=== PATIENT | male | born 1930 | race African-American/Black ===

== ENCOUNTER 2017-12-07 21:29 | Emergency (ER) | payer OTHER ==
[~2017-12-07] VITALS: Ht 177.8 cm; Wt 69.0 kg
[2017-12-07] MEDS ORDERED: ACETAMINOPHEN 325MG TABLET PO STA (21:43)
[2017-12-07] MEDS ORDERED: SODIUM CHLORIDE 0.9% 1000ML BAG (SEPSIS BOLUS) IV ONE (21:45)
[2017-12-07 22:09] LABS: BASOPHILS % 0.2 % (0.0-2.0); EOSINOPHILS % 0.1 % (0.0-5.0); HEMATOCRIT. 37.5 % (42.0-52.0); HEMOGLOBIN. 12.7 g/dL (14.0-18.0); LYMPHOCYTES % 17.1 % (20.0-50.0); MEAN CORPUSCULAR HEMOGLOBIN 29.9 pg (28.0-32.0); MEAN CORPUSCULAR VOLUME 88.4 fL (80.0-94.0); MEAN PLATELET VOLUME 7.3 fl (7.4-10.4); MONOCYTES % 2.7 % (2.0-8.0); NEUTROPHILS % 79.9 % (40.0-76.0); PLATELET 167 x1000/uL (130-400); RED BLOOD CELL COUNT 4.24 mill/uL (4.7-6.1); RED CELL DISTRIBUTION WIDTH 13.9 % (11.6-14.6)
[2017-12-07 22:17] LABS: PROTHROMBIN TIME 10.8 sec (9.4-11.6)
[2017-12-07 22:19] LABS: CHLORIDE 100 mEq/L (98-107)
[2017-12-07 22:25] LABS: TROPONIN I < 0.02 ng/mL (0.00-0.04)
[2017-12-07 22:35] LABS: CLARITY URINE CLOUDY (CLEAR); COLOR URINE YELLOW (YELLOW); KETONES URINE NEGATIVE (NEGATIVE); LEUKOCYTE ESTERASE URINE 2+ (NEGATIVE); NITRITE URINE NEGATIVE (NEGATIVE); OCCULT BLOOD URINE 1+ (NEGATIVE); PH URINE 8.5 (4.5-8.0); PROTEIN URINE 1+ (NEGATIVE); SPECIFIC GRAVITY URINE 1.013 (1.005-1.030); UROBILINOGEN URINE 0.2 E.U./dL (0.2-1.0)
[2017-12-07] MEDS ORDERED: CEFTRIAXONE 1 G PREMIX 50 ML IV ONE (23:00)
[2017-12-07] MEDS ORDERED: POTASSIUM CHLORIDE 20MEQ TABLET SR PO ONE (23:45)
[2017-12-08 01:46] VITALS: BP 143/73
== END 2017-12-08 01:47 | disposition short-term general hospital (02) ==
LOC: ER 21:49 → CANBEDREQ 12-08 02:57
DX: N30.00 Acute cystitis without hematuria (principal); R65.20 Severe sepsis without septic shock; A41.9 Sepsis, unspecified organism; E87.6 Hypokalemia; E11.9 Type 2 diabetes mellitus without complications; I10 Essential (primary) hypertension; F03.90 Unspecified dementia, unspecified severity, without behavioral disturbance, psychotic disturbance, mood disturbance, and anxiety
CPT/HCPCS: 36415; 51702; 71045; 80053; 81003; 83605; 84484; 85025; 85610; 87040; 87077; 87086; 87186; 87804; 93005; 96361; 96365; 96366; 99291; J0696; J7030; A4315

== ENCOUNTER 2018-01-30 00:52 | Emergency (ER) | payer OTHER ==
[~2018-01-30] VITALS: Ht 175.3 cm; Wt 72.0 kg
[2018-01-30] MEDS ORDERED: SODIUM CHLORIDE 0.9% 1,000 ML IV ONE (01:02)
[2018-01-30 01:36] LABS: BASOPHILS % 0.2 % (0.0-2.0); EOSINOPHILS % 1.9 % (0.0-5.0); HEMOGLOBIN. 12.8 g/dL (14.0-18.0); LYMPHOCYTES % 62.4 % (20.0-50.0); MEAN CORPUSCULAR HEMOGLOBIN 30.6 pg (28.0-32.0); MEAN CORPUSCULAR VOLUME 88.3 fL (80.0-94.0); MEAN PLATELET VOLUME 7.2 fl (7.4-10.4); MONOCYTES % 5.1 % (2.0-8.0); NEUTROPHILS % 30.4 % (40.0-76.0); PLATELET 174 x1000/uL (130-400); RED BLOOD CELL COUNT 4.19 mill/uL (4.7-6.1); RED CELL DISTRIBUTION WIDTH 13.4 % (11.6-14.6)
[2018-01-30 01:38] LABS: CHLORIDE 105 mEq/L (98-107)
[2018-01-30 01:42] LABS: ETHANOL BLOOD < 10 mg/dL
[2018-01-30 01:43] LABS: CLARITY URINE CLEAR (CLEAR); COLOR URINE YELLOW (YELLOW); KETONES URINE NEGATIVE (NEGATIVE); LEUKOCYTE ESTERASE URINE NEGATIVE (NEGATIVE); NITRITE URINE NEGATIVE (NEGATIVE); OCCULT BLOOD URINE NEGATIVE (NEGATIVE); PROTEIN URINE NEGATIVE (NEGATIVE); UROBILINOGEN URINE 0.2 E.U./dL (0.2-1.0)
[2018-01-30 02:13] LABS: *AMPHETAMINES SCREEN URINE NEGATIVE (NEGATIVE); *BARBITURATES SCREEN URINE NEGATIVE (NEGATIVE); *BENZODIAZEPINES SCREEN URINE NEGATIVE (NEGATIVE); *COCAINE SCREEN URINE NEGATIVE (NEGATIVE); METHADONE URINE SCREEN NEGATIVE (NEGATIVE); PHENCYCLIDINE URINE SCREEN NEGATIVE (NEGATIVE)
[2018-01-30 02:14] LABS: CANNABINOID URINE SCREEN NEGATIVE (NEGATIVE)
[2018-01-30] MEDS ORDERED: HYDROCODONE/ACETAMINOPHEN 10/325MG TABLET PO ONE (02:15)
[2018-01-30 02:36] LABS: OPIATES URINE SCREEN NEGATIVE (NEGATIVE)
[2018-01-30] MEDS ORDERED: HYDRALAZINE 20MG/ML VIAL IV NR (02:45)
[2018-01-30] MEDS ORDERED: IBUPROFEN 400MG TABLET PO ONE (04:45)
[2018-01-30 05:25] VITALS: BP 162/84
== END 2018-01-30 05:20 | disposition home or self-care (01) ==
LOC: ER 00:52
DX: H70.92 Unspecified mastoiditis, left ear (principal); R41.0 Disorientation, unspecified; I10 Essential (primary) hypertension; E11.9 Type 2 diabetes mellitus without complications; F03.90 Unspecified dementia, unspecified severity, without behavioral disturbance, psychotic disturbance, mood disturbance, and anxiety; Z87.440 Personal history of urinary (tract) infections; Z90.49 Acquired absence of other specified parts of digestive tract; Z92.3 Personal history of irradiation
CPT/HCPCS: 36415; 70450; 71045; 74176; 80053; 80305; 81003; 82962; 83605; 83690; 83880; 84484; 85025; 87040; 87086; 93005; 96361; 96374; 99285; G0482; J0360; J7030

== ENCOUNTER 2018-05-21 23:00 | Inpatient (IN) | payer OTHER ==
[~2018-05-21] VITALS: Ht 177.8 cm; Wt 74.8 kg
[2018-05-21] MEDS ORDERED: SODIUM CHLORIDE 0.9% 1,000 ML IV ONE (23:45)
[2018-05-22 00:52] LABS: BASOPHILS % 0.4 % (0.0-2.0); EOSINOPHILS % 0.7 % (0.0-5.0); HEMATOCRIT. 35.5 % (42.0-52.0); HEMOGLOBIN. 12.2 g/dL (14.0-18.0); LYMPHOCYTES % 42.7 % (20.0-50.0); MEAN CORPUSCULAR HEMOGLOBIN 30.5 pg (28.0-32.0); MEAN CORPUSCULAR VOLUME 88.9 fL (80.0-94.0); MEAN PLATELET VOLUME 7.2 fl (7.4-10.4); NEUTROPHILS % 48.2 % (40.0-76.0); PLATELET 158 x1000/uL (130-400); RED BLOOD CELL COUNT 3.99 mill/uL (4.7-6.1); RED CELL DISTRIBUTION WIDTH 13.5 % (11.6-14.6)
[2018-05-22 00:59] LABS: CHLORIDE 106 mEq/L (98-107)
[2018-05-22 01:00] LABS: PARTIAL THROMBOPLASTIN TIME 21.7 sec (23.4-31.0); PROTHROMBIN TIME 10.1 sec (9.1-11.1)
[2018-05-22 01:43] LABS: CLARITY URINE CLEAR (CLEAR); COLOR URINE YELLOW (YELLOW); KETONES URINE NEGATIVE (NEGATIVE); LEUKOCYTE ESTERASE URINE NEGATIVE (NEGATIVE); NITRITE URINE NEGATIVE (NEGATIVE); OCCULT BLOOD URINE NEGATIVE (NEGATIVE); PROTEIN URINE NEGATIVE (NEGATIVE); UROBILINOGEN URINE 0.2 E.U./dL (0.2-1.0)
[2018-05-22 05:30] VITALS: BP 208/103
[2018-05-22] MEDS ORDERED: CARB-31 PO (06:26)
[2018-05-22] MEDS ORDERED: HYDR-4134 PO (06:26)
[2018-05-22] MEDS ORDERED: ATEN-42 PO (06:26)
[2018-05-22] MEDS ORDERED: LOSA100T14 PO (06:26)
[2018-05-22] MEDS ORDERED: CARB200T PO (06:26)
[2018-05-22] MEDS ORDERED: AMLO5TAB88 PO (06:26)
[2018-05-22] MEDS ORDERED: POTA-9 PO (06:26)
[2018-05-22] MEDS ORDERED: ASPI-1159 PO (06:26)
[2018-05-22] MEDS ORDERED: QUET100T PO (06:26)
[2018-05-22 08:00] VITALS: BP 188/110
[2018-05-22] MEDS ORDERED: ONDANSETRON HCL 4MG/2ML VIAL IV PRN (09:15)
[2018-05-22] MEDS ORDERED: MAGNESIUM/ALUMINUM HYDROXIDE/SIMETHICONE 30ML UDC PO PRN (09:15)
[2018-05-22] MEDS ORDERED: ACETAMINOPHEN 650MG/20.3ML UDC GT PRN (09:15)
[2018-05-22] MEDS ORDERED: HYDROCODONE/ACETAMINOPHEN 10/325MG TABLET PO PRN (09:15)
[2018-05-22] MEDS ORDERED: DOCUSATE SODIUM 100MG CAPSULE PO PRN (09:15)
[2018-05-22] MEDS ORDERED: GUAIFENESIN 200MG/10ML SUGAR FREE UDC PO PRN (09:15)
[2018-05-22] MEDS ORDERED: HYDROCODONE/ACETAMINOPHEN 5/325MG TABLET PO PRN (09:15)
[2018-05-22] MEDS ORDERED: ACETAMINOPHEN 650MG SUPP PR PRN (09:15)
[2018-05-22] MEDS ORDERED: ACETAMINOPHEN 325MG TABLET PO PRN (09:15)
[2018-05-22] MEDS: CARBAMAZEPINE 200MG TABLET PO SCH ×2 (09:53→17:39)
[2018-05-22] MEDS: LOSARTAN POTASSIUM 100 MG TABLET PO SCH (09:53)
[2018-05-22] MEDS: ASPIRIN 81MG TABLET PO SCH (09:53)
[2018-05-22] MEDS: ENOXAPARIN 40MG/0.4ML SYR SUBCUT SCH (11:36)
[2018-05-22 12:00] VITALS: BP_SYST 158; BP_SYST 166; BP_SYST 175; BP_DIAS 84; BP_DIAS 85; BP_DIAS 87
[2018-05-22] MEDS: IPRATROPIUM/ALBUTEROL 0.5-3(2.5)MG/3ML NEB INH SCH ×2 (12:14→20:41)
[2018-05-22] MEDS ORDERED: HYDRALAZINE HCL 25MG TABLET PO SCH (14:00)
[2018-05-22 14:08] LABS: CREATINE KINASE 87 IU/L (39-308); CREATINE KINASE MB FRACTION < 1.0 ng/mL (0.5-3.6)
[2018-05-22] MEDS: HYDRALAZINE HCL 25MG TABLET PO SCH ×2 (14:14→21:22)
[2018-05-22] MEDS: CARBIDOPA/LEVODOPA 10/100MG TABLET PO SCH ×2 (14:14→21:21)
[2018-05-22 16:00] VITALS: BP 155/90
[2018-05-22 20:00] VITALS: BP_SYST 135; BP_SYST 141; BP_DIAS 73; BP_DIAS 79
[2018-05-22 21:16] LABS: AMMONIA 25 uMol/L (<32)
[2018-05-22 23:52] LABS: CREATINE KINASE 102 IU/L (39-308)
[2018-05-23] VITALS: BP 130/76
[2018-05-23] MEDS: IPRATROPIUM/ALBUTEROL 0.5-3(2.5)MG/3ML NEB INH SCH ×3 (01:47→14:05)
[2018-05-23 04:00] VITALS: BP 146/78
[2018-05-23] MEDS: HYDRALAZINE HCL 25MG TABLET PO SCH ×2 (05:32→14:07)
[2018-05-23] MEDS: CARBIDOPA/LEVODOPA 10/100MG TABLET PO SCH ×2 (05:32→14:07)
[2018-05-23 07:39] LABS: CHLORIDE 106 mEq/L (98-107)
[2018-05-23 07:41] LABS: BASOPHILS % 0.2 % (0.0-2.0); EOSINOPHILS % 0.6 % (0.0-5.0); HEMATOCRIT. 37.9 % (42.0-52.0); HEMOGLOBIN. 12.9 g/dL (14.0-18.0); LYMPHOCYTES % 41.6 % (20.0-50.0); MEAN CORPUSCULAR VOLUME 87.9 fL (80.0-94.0); MEAN PLATELET VOLUME 7.5 fl (7.4-10.4); MONOCYTES % 5.6 % (2.0-8.0); PLATELET 202 x1000/uL (130-400); RED BLOOD CELL COUNT 4.31 mill/uL (4.7-6.1); RED CELL DISTRIBUTION WIDTH 13.7 % (11.6-14.6)
[2018-05-23 07:50] LABS: HDL CHOLESTEROL 52 mg/dL (40-59); LDL CHOLESTEROL 83 mg/dL (5-100)
[2018-05-23 07:51] LABS: PHOSPHORUS 2.2 mg/dL (2.5-4.9)
[2018-05-23 07:56] LABS: T4 FREE 0.89 ng/dL (0.76-1.46)
[2018-05-23 08:00] VITALS: BP_SYST 126; BP_SYST 138; BP_DIAS 78; BP_DIAS 82
[2018-05-23] MEDS: ASPIRIN 81MG TABLET PO SCH (09:08)
[2018-05-23] MEDS: CARBAMAZEPINE 200MG TABLET PO SCH ×2 (09:08→18:13)
[2018-05-23] MEDS: ENOXAPARIN 40MG/0.4ML SYR SUBCUT SCH (09:08)
[2018-05-23] MEDS: LOSARTAN POTASSIUM 100 MG TABLET PO SCH (09:08)
[2018-05-23] MEDS ORDERED: POTASSIUM CHLORIDE 20MEQ TABLET SR PO NR (10:30)
[2018-05-23 12:00] VITALS: BP 104/66
[2018-05-23] MEDS ORDERED: PNEUMOCOCCAL 23-VAL P-SAC VAC 0.5 ML IM ONE (12:00)
[2018-05-23] MEDS ORDERED: LORAZEPAM 2MG/ML CPJ IV PRN (13:45)
[2018-05-23 16:00] VITALS: BP 105/63
[2018-05-23 16:58] VITALS: BP 105/63
[2018-05-23] MEDS ORDERED: CARVEDILOL 3.125 MG TABLET PO SCH (21:00)
== END 2018-05-23 19:35 | disposition short-term general hospital (02) | DRG 309 ==
LOC: ER 23:46 → 7WST 05-22 01:24 → EDBEDREQ 05-22 01:26 → ENRESERV 05-22 03:47
PROVIDERS: ADMIT Internal Medicine; ATTEND Internal Medicine
DX: I44.0 Atrioventricular block, first degree (principal); E44.1 Mild protein-calorie malnutrition; E11.9 Type 2 diabetes mellitus without complications; G20 Parkinson's disease; I10 Essential (primary) hypertension; Z79.84 Long term (current) use of oral hypoglycemic drugs; I95.9 Hypotension, unspecified; G40.909 Epilepsy, unspecified, not intractable, without status epilepticus; F02.80 Dementia in other diseases classified elsewhere, unspecified severity, without behavioral disturbance, psychotic disturbance, mood disturbance, and anxiety; Z79.899 Other long term (current) drug therapy; Z79.82 Long term (current) use of aspirin; Z78.1 Physical restraint status; Z87.440 Personal history of urinary (tract) infections; Z68.23 Body mass index [BMI] 23.0-23.9, adult
CPT/HCPCS: 36415; 70450; 71045; 78580; 80053; 80061; 81003; 82140; 82550; 82553; 83036; 83735; 83880; 84100; 84439; 84443; 84481; 84484; 85025; 85379; 85610; 85730; 90732; 93005; 93306; 93880; 93970; 94640; 96361; 96374; 97161; 97162; 97165; 99285; J1650; J2060; J7030; J7620

== ENCOUNTER 2019-02-15 23:49 | Emergency (ER) | payer OTHER ==
[~2019-02-15] VITALS: Ht 182.9 cm; Wt 68.0 kg
[~2019-02-15 23:49] MED LIST: AMLO5TAB88 PO; ASPI-1159 PO; ATEN-42 PO; CARB-31 PO; CARB200T PO; HYDR-4134 PO; LOSA100T14 PO; POTA-9 PO; QUET100T PO
[2019-02-16] MEDS ORDERED: ONDANSETRON HCL 4MG/2ML INJ IV STA (00:29)
[2019-02-16] MEDS ORDERED: SODIUM CHLORIDE 0.9% 1,000 ML IV ONE (00:29)
[2019-02-16 01:03] LABS: BASOPHILS % 0.2 % (0.0-2.0); EOSINOPHILS % 2.5 % (0.0-5.0); HEMOGLOBIN. 12.7 g/dL (14.0-18.0); LYMPHOCYTES % 34.5 % (20.0-50.0); MEAN CORPUSCULAR HEMOGLOBIN 30.1 pg (28.0-32.0); MEAN CORPUSCULAR VOLUME 89.9 fL (80.0-94.0); MEAN PLATELET VOLUME 6.8 fl (7.4-10.4); MONOCYTES % 5.1 % (2.0-8.0); NEUTROPHILS % 57.7 % (40.0-76.0); PLATELET 184 x1000/uL (130-400); RED BLOOD CELL COUNT 4.23 mill/uL (4.7-6.1); RED CELL DISTRIBUTION WIDTH 13.4 % (11.6-14.6)
[2019-02-16 01:06] LABS: CHLORIDE 108 mEq/L (98-107)
[2019-02-16 01:09] LABS: INR 1.1; PROTHROMBIN TIME 11.3 sec (9.6-11.0)
[2019-02-16 03:40] VITALS: BP 163/78
== END 2019-02-16 03:56 | disposition short-term general hospital (02) ==
LOC: ER 23:49 → CANBEDREQ 02-16 04:06
DX: R55 Syncope and collapse (principal); I10 Essential (primary) hypertension; F03.90 Unspecified dementia, unspecified severity, without behavioral disturbance, psychotic disturbance, mood disturbance, and anxiety; E11.9 Type 2 diabetes mellitus without complications
CPT/HCPCS: 36415; 70450; 71045; 80053; 83605; 83690; 84484; 85025; 85610; 93005; 96361; 96374; 99285; J2405; J7030